=== PATIENT | female | born 1985 | race Caucasian/White ===

== ENCOUNTER 2016-08-23 09:10 | Observation (INO) | payer OTHER ==
[~2016-08-23] VITALS: Ht 162.6 cm; Wt 99.8 kg
[2016-08-23] MEDS ORDERED: TERBUTALINE 1 MG/ML VIAL SUBQ SCH (09:30)
[2016-08-23] MEDS ORDERED: TERBUTALINE 1 MG/ML VIAL SUBQ ONE ×2 (10:11→10:34)
[2016-08-23 10:22] VITALS: BP 122/64
[2016-08-23] MEDS ORDERED: TERBUTALINE 2.5 MG TAB PO ONE (12:35)
[2016-08-23] MEDS ORDERED: TERBUTALINE 2.5 MG TAB ONE (12:36)
[2016-08-23] MEDS ORDERED: PRENATAL VITAMI1 TA2 PO (12:58)
[2016-08-23 13:08] VITALS: BP 125/66
== END 2016-08-23 13:20 | disposition home or self-care (01) ==
LOC: MLD 09:10
PROVIDERS: ADMIT Obstetrics & Gynecology; ATTEND Obstetrics & Gynecology
DX: O62.9 Abnormality of forces of labor, unspecified (principal); Z3A.00 Weeks of gestation of pregnancy not specified
CPT/HCPCS: 96372; G0378; J3105